=== PATIENT | female | born 1955 | race Caucasian/White ===

== ENCOUNTER 2018-09-17 12:23 | Emergency (ER) | payer OTHER ==
[~2018-09-17] VITALS: Ht 162.6 cm; Wt 72.6 kg
[2018-09-17] MEDS ORDERED: VASOTEC5 MG (12:34)
== END 2018-09-17 16:03 | disposition home or self-care (01) ==
LOC: ER 12:23
DX: N20.1 Calculus of ureter (principal)

== ENCOUNTER 2018-09-30 07:05 | Day surgery (SDC) | payer OTHER ==
[~2018-09-30 07:05] MED LIST: VASOTEC5 MG
== END 2018-09-30 17:50 | disposition home or self-care (01) ==
LOC: CIR.AMB 07:05
DX: N20.0 Calculus of kidney (principal)

== ENCOUNTER 2018-10-08 21:28 | Emergency (ER) | payer OTHER ==
[~2018-10-08] VITALS: Ht 162.6 cm; Wt 72.6 kg
[2018-10-08] MEDS ORDERED: PHENAZOPYRIDIN100 MG (21:44)
[2018-10-08] MEDS ORDERED: MACRODANTIN100 M1 (21:45)
[2018-10-09] MEDS ORDERED: LEVAQUIN750 MG PO (01:43)
[2018-10-09] MEDS ORDERED: INTESTINEX680 M1 PO (01:43)
== END 2018-10-09 01:59 ==
LOC: ER 21:28
DX: R50.9 Fever, unspecified (principal); B34.9 Viral infection, unspecified

== ENCOUNTER 2020-11-04 12:32 | Outpatient (CLI) | payer OTHER ==
[~2020-11-04 12:32] MED LIST changes: +INTESTINEX680 M1 PO; +LEVAQUIN750 MG PO; +MACRODANTIN100 M1; +PHENAZOPYRIDIN100 MG
[2020-11-04] MEDS ORDERED: ATORVASTATIN CA20 MG PO (14:01)
[2020-11-04] MEDS ORDERED: ENALAPRIL MALEAT5 MG PO (14:01)
== END 2020-11-04 12:39 | disposition home or self-care (01) ==
LOC: LAB 12:32
PROVIDERS: ATTEND Urology
DX: Z20.828 Contact with and (suspected) exposure to other viral communicable diseases (principal)

== ENCOUNTER 2020-11-11 06:56 | Inpatient (IN) | payer OTHER ==
[~2020-11-11 06:56] MED LIST changes: +ATORVASTATIN CA20 MG PO; +ENALAPRIL MALEAT5 MG PO
== END 2020-11-12 15:17 | disposition home or self-care (01) | DRG 694 ==
LOC: CIR.AMB 06:56 → SURG 15:38 → O/R 15:38 → SURG 15:53
PROVIDERS: ADMIT Urology; ATTEND Urology
PROC: 0T9430Z Drainage of Left Kidney Pelvis with Drainage Device, Percutaneous Approach (ICD-10-PCS; principal; 2020-11-11 07:00)
DX: N13.2 Hydronephrosis with renal and ureteral calculous obstruction (principal)

== ENCOUNTER 2020-12-24 06:09 | Emergency (ER) | payer OTHER ==
[~2020-12-24] VITALS: Ht 162.6 cm; Wt 72.6 kg
[2020-12-24] MEDS ORDERED: CIPRO500 MG PO (13:23)
[2021-01-06] MEDS ORDERED: MACRODANTIN100 M1 PO (13:17)
== END 2020-12-24 13:54 | disposition home or self-care (01) ==
LOC: ER 06:09
DX: R10.32 Left lower quadrant pain (principal); Z20.822 Contact with and (suspected) exposure to COVID-19; N39.0 Urinary tract infection, site not specified; B96.5 Pseudomonas (aeruginosa) (mallei) (pseudomallei) as the cause of diseases classified elsewhere; B96.1 Klebsiella pneumoniae [K. pneumoniae] as the cause of diseases classified elsewhere; B95.2 Enterococcus as the cause of diseases classified elsewhere

== ENCOUNTER 2021-01-01 09:49 | Outpatient (CLI) | payer OTHER ==
[~2021-01-01 09:49] MED LIST changes: +CIPRO500 MG PO
[2021-01-06] MEDS ORDERED: MACRODANTIN100 M1 PO (13:17)
== END 2021-01-01 09:57 | disposition home or self-care (01) ==
LOC: RX STUDY 09:49
PROVIDERS: ATTEND Urology
DX: N28.89 Other specified disorders of kidney and ureter (principal)

== ENCOUNTER 2021-02-11 07:00 | Inpatient (IN) | payer OTHER ==
[~2021-02-11] VITALS: Ht 162.6 cm; Wt 72.6 kg
[~2021-02-11 07:00] MED LIST changes: +MACRODANTIN100 M1 PO
[2021-02-17] MEDS ORDERED: CIPROFLOXACIN500 MG (08:04)
[2021-02-17] MEDS ORDERED: INTESTINEX680 M1 (08:04)
== END 2021-02-19 13:12 | disposition home or self-care (01) | DRG 661 ==
LOC: O/R 02-17 05:50 → SURH 02-17 05:50
PROVIDERS: ADMIT Urology; ATTEND Urology
PROC: 0TT14ZZ Resection of Left Kidney, Percutaneous Endoscopic Approach (ICD-10-PCS; principal; 2021-02-17 07:00)
DX: N13.1 Hydronephrosis with ureteral stricture, not elsewhere classified (principal); N04.1 Nephrotic syndrome with focal and segmental glomerular lesions; N11.8 Other chronic tubulo-interstitial nephritis; N28.9 Disorder of kidney and ureter, unspecified; I10 Essential (primary) hypertension

== ENCOUNTER 2021-04-10 08:27 | Outpatient (CLI) | payer OTHER ==
[~2021-04-10 08:27] MED LIST changes: +CIPROFLOXACIN500 MG; +INTESTINEX680 M1
== END 2021-04-10 08:33 | disposition home or self-care (01) ==
LOC: SONOGRAMA 08:27
PROVIDERS: ATTEND Pathology Anatomic Pathology & Clinical Pathology
DX: D34 Benign neoplasm of thyroid gland (principal); E04.2 Nontoxic multinodular goiter; E07.89 Other specified disorders of thyroid

== ENCOUNTER 2021-06-23 12:36 | Emergency (ER) | payer OTHER ==
[~2021-06-23] VITALS: Ht 162.6 cm; Wt 65.8 kg
[2021-06-23] MEDS ORDERED: BUTALB-ACETAMI1 EAC2 PO (17:25)
== END 2021-06-23 17:47 | disposition home or self-care (01) ==
LOC: ER 12:36
DX: G44.89 Other headache syndrome (principal)

== ENCOUNTER 2021-09-29 07:02 | Outpatient (CLI) | payer OTHER ==
[~2021-09-29 07:02] MED LIST changes: +BUTALB-ACETAMI1 EAC2 PO
== END 2021-09-29 07:06 | disposition home or self-care (01) ==
LOC: SONOGRAMA 07:02
PROVIDERS: ATTEND Urology
DX: N20.0 Calculus of kidney (principal); N20.1 Calculus of ureter; N13.1 Hydronephrosis with ureteral stricture, not elsewhere classified

== ENCOUNTER 2022-02-26 09:13 | Outpatient (CLI) | payer OTHER | END 2022-02-26 09:15 | disposition home or self-care (01) | LOC: SONOGRAMA 09:13 | PROVIDERS: ATTEND Pathology Anatomic Pathology & Clinical Pathology | DX: E04.8 Other specified nontoxic goiter (principal) ==

== ENCOUNTER 2023-01-28 07:40 | Outpatient (CLI) | payer OTHER | END 2023-01-28 07:43 | disposition home or self-care (01) | LOC: SONOGRAMA 07:40 | PROVIDERS: ATTEND Pathology Anatomic Pathology & Clinical Pathology | DX: D44.0 Neoplasm of uncertain behavior of thyroid gland (principal); D34 Benign neoplasm of thyroid gland; E04.9 Nontoxic goiter, unspecified; E07.9 Disorder of thyroid, unspecified; E04.2 Nontoxic multinodular goiter ==

== ENCOUNTER 2023-07-19 09:55 | Outpatient (CLI) | payer OTHER | END 2023-07-19 09:56 | disposition home or self-care (01) | LOC: SONOGRAMA 09:55 | PROVIDERS: ATTEND Pathology Anatomic Pathology & Clinical Pathology | DX: D34 Benign neoplasm of thyroid gland (principal); D44.0 Neoplasm of uncertain behavior of thyroid gland; E04.9 Nontoxic goiter, unspecified; E07.9 Disorder of thyroid, unspecified ==

== ENCOUNTER 2024-08-29 10:12 | Outpatient (CLI) | payer OTHER | END 2024-08-29 10:17 | disposition home or self-care (01) | LOC: SONOGRAMA 10:12 | DX: N20.0 Calculus of kidney (principal); N20.1 Calculus of ureter ==